=== PATIENT | male | born 1965 | race American Indian/Alaskan Native ===

== ENCOUNTER 2017-05-25 17:47 | Outpatient (CLI) | payer OTHER ==
--- NOTE | 2017-05-25 22:53 | XRay Report ---
FINAL REPORT EXAM: XR SPINE LUMBOSACRAL 2-3V HISTORY: SCIATICA OF RIGHT SIDE TECHNIQUE: Two views lumbosacral spine Comparison: None FINDINGS: Normal bone density. Normal alignment of the vertebral bodies. L5/S1 disc space narrowing. Marginal osteophytes lower lumbar and lower thoracic vertebral bodies. Schmorl's nodes lower thoracic vertebral bodies. Poorly penetrated exam. SI joints incompletely assessed. IMPRESSION: Mild degenerative osteophytic change lower thoracic and lumbar vertebral bodies. Exam is poorly penetrated. No compression fracture. Normal alignment. L5/S1 disc space narrowing. If clinically indicated, recommend further workup with MRI lumbar spine.
== END 2017-05-25 17:48 | disposition home or self-care (01) ==
LOC: XRAY 17:47
PROVIDERS: ATTEND Internal Medicine
DX: Z02.71 Encounter for disability determination (principal); M51.44 Schmorl's nodes, thoracic region; M25.78 Osteophyte, vertebrae
CPT/HCPCS: 72100